=== PATIENT | female | born 1975 | race Caucasian/White ===

== ENCOUNTER 2020-12-27 11:23 | Emergency (ER) | payer OTHER, SELFPAY ==
--- NOTE | 2020-12-27 11:34 | ED.URI ---
HPI - URI/Sore Throat General Chief Complaint: Upper Respiratory Infection Stated Complaint: headache/sore throat Time Seen by Provider: 12/27/20 11:35 Source: patient and RN notes reviewed Mode of arrival: ambulatory Limitations: no limitations History of Present Illness HPI Narrative: 45-year-old female presents with concern for 6-day history of body aches, muscle cramps bilateral ear pain, change in her sense of smell, cough, sore throat. She denies shortness of breath. She has not been vaccinated for Covid. She denies known sick contacts. Reports she is taken several [id number] remedies without relief. MD elicited complaint: sore throat Related Data Home Medications Medication Instructions Recorded Confirmed albuterol sulfate 90 mcg/actuation See Rx Instructions .ROUTE .COMPLEX 10/13/19 12/27/20 breath activated powder inhaler budesonide-formoterol HFA 80 2 puff INHALATION .COMPLEX gm 10/13/19 12/27/20 mcg-4.5 mcg/actuation aerosol inhaler estradiol-norethindrone acet 1 tablet PO DAILY 12/27/20 12/27/20 [Mimvey] sertraline 100 mg PO DAILY 12/27/20 12/27/20 Allergies Allergy/AdvReac Type Severity Reaction Status Date / Time Penicillins Allergy Intermediate Fever Verified 12/27/20 11:45 Review of Systems Review of Systems: CONSTITUTIONAL: Reports malaise, fatigue. Denies chills, sweats, or fever. EYES: Denies visual changes, redness, or discharge. ENT: Reports rhinorrhea, congestion, otalgia and sore throat. CARDIOVASCULAR: Denies chest pain, palpitations, or edema. RESPIRATORY: Reports cough. Denies dyspnea. GASTROINTESTINAL: Denies abdominal pain, nausea, vomiting, diarrhea SKIN: Denies rash or itching. MUSCULOSKELETAL: Reports myalgia. NEUROLOGIC: Reports headache. All systems reviewed & are unremarkable except as noted in HPI and below PMFSH Past Medical History Medical History (Updated 12/27/20 @ 12:01 by Marylou Berger NP) Cervical radiculopathy Lumbar back pain Lumbar radiculopathy Neck pain Social History Social History Smoking status: Former smoker Smoking end date: 05/19/04 Alcohol intake: never Gender identity (if verbalized by the patient): Female Comments At time of signature, agree with nursing past medical, surgical, social and family history. There is no relevant family history pertinent to the presenting complaint Exam Narrative: GENERAL: Well-appearing, well-nourished, and in no acute distress. HEAD: Normocephalic EYES: PERRLA, conjunctivae clear ENT: Nares clear, clear discharge. Mucous membranes moist. TM pearly marquez with dull light reflex bilaterally; no tragal tenderness. Oropharynx not erythematous without lesions. Tonsils not enlarged and without exudate, no drooling, no hoarseness, no trismus, uvula midline. NECK: Supple. No lymphadenopathy CHEST: Clear to auscultation, breath sounds equal. No wheezing, rhonchi, rales, or stridor. No respiratory distress, speaks in full sentences. HEART: Regular rate and rhythm. No murmur heard. SKIN: Warm, dry, no rash. NEURO: Alert and oriented x3. PSYCH: Normal mood and affect Course Course Emergency Course: Patient is aware of diagnosis, understands and agrees to treatment plan. Anticipatory guidance given. Patient agrees to follow-up as directed and is aware of reasons to seek care at the emergency department. Portions of this record may have been created with voice recognition software Vital Signs Vital signs: Reviewed. Patient has been instructed to follow up with her primary care provider within the next week regarding her elevated blood pressure today. MDM - URI/Sore Throat MDM Narrative Medical decision making narrative: Differential diagnosis considered: Tavera virus, strep pharyngitis, allergic rhinitis, upper respiratory tract infection, sinusitis, rhinosinusitis, nasopharyngitis. viral pharyngitis, otitis media, otitis externa, pneumonia, bronchitis
[2020-12-27 11:35] VITALS: BP 143/98; PULSE 104; RESP 16; TEMP 36.9; O2SAT 97
== END 2020-12-27 12:15 | disposition home or self-care (01) ==
PROVIDERS: Emergency Provider Nurse Practitioner; PCP Emergency Medicine
DX: U07.1 COVID-19 (principal); Z87.891 Personal history of nicotine dependence
CPT/HCPCS: 87081; 87426; 87880; 99213; C9803; G0463

== ENCOUNTER 2021-08-22 10:28 | Outpatient (CLI) | payer OTHER, SELFPAY ==
--- NOTE | ~2021-08-22 | MMUS_ITS ---
EXAMINATION: MM diagnostic carrillo BI w jannie, US breast LT complete HISTORY: Left breast pain and palpable lump TECHNIQUE: Additional 3-D tomosynthesis images of the breasts were performed and synthetic 2-D images were generated. CAD analysis was submitted and interpreted. High resolution complete left breast ult rasound was performed. COMPARISON: Comparison to multiple prior studies sequentially, with oldest reviewed study dated 03/19. BREAST PARENCHYMAL COMPOSITION: The breasts are heterogenously dense, which may obscure small masses. FINDINGS: MAMMOGRAPHIC FINDINGS: There are no suspicious masses, calcifications or architectural distortion in either breast to sugges t malignancy. ULTRASOUND: Complete US of all 4 quadrants of the breasts and retroareolar region was reviewed. At 1:00, 2 cm fro m the nipple there is a 6 mm cyst. At 5:30, 5 cm from the nipple there are 2 cysts measuring 4 mm. In the left axilla there is a normal-appearing lymph node measuring 1.5 cm with fatty hilum. No suspici ous masses to suggest malignancy. IMPRESSION: 1. No evidence for malignancy in either breast. 2. Routine yearly screening mammogram and regular clinical breast examination are recommended. BI-RADS Category 2: Benign finding(s). Reviewed, dictated and finalized at location A. IMPRESSION: 1. No evidence for malignancy in either breast. 2. Routine yearly screening mammogram and regular clinical breast examination a re recommended. BI-RADS Category 2: Benign finding(s).
== END 2021-08-22 10:29 | disposition home or self-care (01) ==
LOC: ANHIMG 10:30
PROVIDERS: PCP Emergency Medicine; Visit Provider Emergency Medicine
DX: N64.4 Mastodynia (principal)
CPT/HCPCS: 76641; 77062; 77066; G0279

== ENCOUNTER 2021-12-24 08:41 | Emergency (ER) | payer OTHER, SELFPAY ==
[2021-12-24 08:50] VITALS: BP 140/92; PULSE 86; RESP 18; TEMP 36.6; O2SAT 100
--- NOTE | 2021-12-24 08:58 | ED.FEMALEGU ---
HPI - Female Genitourinary General Chief complaint: Urogenital-Female Stated complaint: UTI Time Seen by Provider: 12/24/21 09:09 Source: patient, RN notes reviewed and old records reviewed Mode of arrival: ambulatory Limitations: no limitations History of Present Illness HPI Narrative: 46-year-old female presents to the [facility] with complaints of I think I have a UTI. Symptoms for probably 5 to 7 days Patient reports some burning with urination. Has a history of chronic pain's, denies any new back pain. Denies abdominal pain. No CVA tenderness. Denies fevers. Has tried Azo yesterday with some relief. Sexual activity: Yes Related Data Home Medications Medication Instructions Recorded Confirmed estradiol-norethindrone acet 1 1 tablet PO DAILY 12/27/20 12/24/21 mg-0.5 mg tablet (Mimvey) Allergies Allergy/AdvReac Type Severity Reaction Status Date / Time Penicillins Allergy Intermediate Fever Verified 12/24/21 08:50 Review of Systems Review of Systems: All systems reviewed & are unremarkable except as noted in HPI and below Constitutional: Constitutional: Reports no additional constitutional complaints, Denies chills and Denies fatigue Eyes: Eyes: Reports no additional eye complaints ENT: Reports system reviewed and no additional complaints, except as documented Cardiovascular: Cardiovascular: Reports no additional cardiovascular complaints Respiratory: Respiratory: Reports no additional respiratory complaints Gastrointestinal: Gastrointestinal: Reports no additional gastrointestinal complaints, Denies abdominal pain, Denies diarrhea, Denies nausea and Denies vomiting Genitourinary: Genitourinary: Reports as per HPI (Frequency, urgency and burning), Reports dysuria, Denies flank pain and Denies vaginal discharge Musculoskeletal: Musculoskeletal: Reports no additional musculoskeletal complaints and Denies back pain Integumentary/Breasts: Skin/Breast: Reports system reviewed and no additional complaints, except as docu Neurologic: Reports system reviewed and no additional complaints, except as documented Psychiatric: Psychiatric: Reports no additional psychiatric complaints Endocrine: Endocrine: Denies fatigue Allergic/Immunologic: Allergic/Immunologic: Reports no additional allergic/immunologic complaints PMFSH Past Medical History Medical History (Updated 12/24/21 @ 18:45 by Marylou Danielle APRN) Cervical radiculopathy Lumbar back pain Lumbar radiculopathy Neck pain Social History Social History Smoking status: Former smoker Smoking end date: 05/19/04 Alcohol intake: never Gender identity (if verbalized by the patient): Female Comments At the time of my signature, I reviewed and agree with the nursing past medical, surgical, social, and family history. There is no relevant family history pertinent to the patient complaint. Exam Const: General: healthy appearing, no acute distress and alert Nutritional Appearance: well nourished and obese Orientation/consciousness: patient oriented x3 Limitations: no limitations HENMT: Head: normal to inspection General nose exam: Normal external nose present Eyes: Conjunctivae: conjunctivae normal Pupils: Equal, round and reactive pupils present Neck: Neck: normal visual inspection, no lymphadenopathy and no meningeal signs Chest: Chest palpation & inspection: normal inspection of the chest and abnormal inspection of the chest Resp: Effort & Inspection: normal respiratory effort Auscultation: clear to auscultation bilaterally Cardio: Rate: regular rate Rhythm: regular rhythm GI: GI Palp: Yes Soft to palpation and No Tenderness to palpation present (GI) : General: Yes no CVA tenderness Back/Spine/Pelvis: Back: no CVA tenderness Skin: General skin exam: normal color Rashes: no rashes Wounds: no wounds Neuro: General: patient oriented x3, moves all extremities, no men
== END 2021-12-24 09:25 | disposition home or self-care (01) ==
PROVIDERS: Emergency Provider Nurse Practitioner; PCP Emergency Medicine
DX: N39.0 Urinary tract infection, site not specified (principal); M54.12 Radiculopathy, cervical region; M54.16 Radiculopathy, lumbar region; Z87.891 Personal history of nicotine dependence
CPT/HCPCS: 81003; 87077; 87086; 87186; 99213; G0463

== ENCOUNTER 2022-05-22 11:22 | Emergency (ER) | payer OTHER, SELFPAY ==
[2022-05-22 11:28] VITALS: BP 141/83; PULSE 95; RESP 16; TEMP 36.9; O2SAT 98
--- NOTE | 2022-05-22 11:49 | ED.FEMALEGU ---
HPI - Female Genitourinary General Chief complaint: Urogenital-Female Stated complaint: UTI Time Seen by Provider: 05/22/22 11:50 Source: patient Mode of arrival: ambulatory Limitations: no limitations History of Present Illness HPI Narrative: Kori is a 47-year-old female patient presenting to the clinic today with complaints of possible urinary tract infection. She reports that she is having some burning with urination and foul odor x6 days. She reports she is now having some low back pain and some lower abdominal pain as well. She denies any fever but has had some chills as well. Related Data Home Medications Medication Instructions Recorded Confirmed conj estrogen-medroxyprogesterone 1 tablet PO DAILY 01/15/22 05/22/22 0.3 mg-1.5 mg tablet (Prempro) Allergies Allergy/AdvReac Type Severity Reaction Status Date / Time Penicillins Allergy Intermediate Fever Verified 05/22/22 11:35 Review of Systems Review of Systems: Pertinent positives per HPI. Patient denies any fever, chills, rash, headache, visual changes, dizziness, cough, runny nose, sore throat, shortness of breath, chest pain, palpitations, nausea, vomiting, diarrhea, constipation. PMFSH Past Medical History Medical History (Updated 05/22/22 @ 11:53 by Dwight Hamilton APRN) Cervical radiculopathy Lumbar back pain Lumbar radiculopathy Neck pain Social History Social History Smoking status: Former smoker Smoking end date: 05/19/04 Alcohol intake: never Gender identity (if verbalized by the patient): Female Comments At the time of my signature, I reviewed and agree with the nursing past medical, surgical, social, and family history. There is no relevant family history pertinent to the patient complaint. Exam Narrative: General: Well-developed, well nourished, in no apparent distress. Head: Normocephalic, atraumatic. Cardio: Regular rate and rhythm, s1 and s2 normal, no murmur appreciated. Resp: Clear to auscultation bilaterally, no rhonchi, rales, wheezing or rubs. Abdomen: Soft, pliable, bowel sounds present in all quadrants,tender to palpation over the suprapubic area, no organomegly, no CVAT tenderness. Course Course Emergency Course: Portions of this record may have been created with voice recognition software. Level of Care: Express Care Visit Vital Signs Vital signs: Vital Signs Temperature 36.9 C 05/22/22 11:28 Pulse Rate 95 05/22/22 11:28 Respiratory Rate 16 05/22/22 11:28 Blood Pressure 141/83 H 05/22/22 11:28 Pulse Oximetry 98 05/22/22 11:28 Oxygen Delivery Room Air 05/22/22 11:28 Temperature 36.9 C 05/22/22 11:28 Pulse Rate 95 05/22/22 11:28 Respiratory Rate 16 05/22/22 11:28 Blood Pressure 141/83 H 05/22/22 11:28 Pulse Oximetry 98 05/22/22 11:28 Oxygen Delivery Room Air 05/22/22 11:28 Vital signs reviewed MDM - Female Genitourinary MDM Narrative Medical decision making narrative: at the time of visit patient is resting comfortably on exam table. Urinalysis was performed she has 3+ leukocytes and 1+ blood. I suspect she has urinary tract infection will place her on Bactrim DS and Pyridium . Supportive measures were discussed with the patient she voiced understanding discharge instructions agrees to treatment plan Differential Diagnosis Differential diagnosis: Likely urinary tract infection and cystitis Lab Data Labs: Urine Glucose Negative Reference Range: Negative Urine Bilirubin Negative Reference Range: Negative Urine Ketone Negative Reference Range: Negative Urine Specific [place] 1.010 Reference Range:1.001-1.035
== END 2022-05-22 12:03 | disposition home or self-care (01) ==
PROVIDERS: Emergency Provider Nurse Practitioner Family; PCP Emergency Medicine
DX: N39.0 Urinary tract infection, site not specified (principal)
CPT/HCPCS: 81003; 87077; 87086; 87186; 99213; G0463

== ENCOUNTER 2022-05-30 16:43 | Emergency (ER) | payer OTHER, SELFPAY ==
[2022-05-30 17:11] VITALS: BP 133/89; PULSE 102; RESP 16; TEMP 37.4; O2SAT 98
--- NOTE | 2022-05-30 17:37 | ED.SKABFB ---
HPI - Skin/Abscess/Foreign Bdy General Chief complaint: Skin/Abscess/Foreign Body Stated complaint: Rash On Body Time Seen by Provider: 05/30/22 17:35 Source: patient, RN notes reviewed and old records reviewed Mode of arrival: ambulatory Limitations: no limitations History of Present Illness HPI narrative: 47-year-old female presents to the [facility] with complaints of hives that started yesterday after she started taking valacyclovir Reports that Pred and the warmth started just after she started taking valacyclovir yesterday. Started taking valacyclovir for a genital herpes outbreak. Denies any chest pain or shortness of breath. No lip or tongue swelling Reports taking Benadryl last night. Onset (ago): day(s) (1) Related Data Home Medications Medication Instructions Recorded Confirmed conj estrogen-medroxyprogesterone 1 tablet PO DAILY 01/15/22 05/22/22 0.3 mg-1.5 mg tablet (Prempro) Allergies Allergy/AdvReac Type Severity Reaction Status Date / Time Penicillins Allergy Intermediate Fever Verified 05/22/22 11:35 valacyclovir Allergy Mild Hives Verified 05/30/22 17:41 Review of Systems Review of Systems: All systems reviewed & are unremarkable except as noted in HPI and below Constitutional: Constitutional: Reports no additional constitutional complaints Eyes: Eyes: Reports no additional eye complaints ENT: Reports system reviewed and no additional complaints, except as documented Cardiovascular: Cardiovascular: Reports no additional cardiovascular complaints, Denies chest pain and Denies dyspnea Respiratory: Respiratory: Reports no additional respiratory complaints, Denies chest congestion, Denies cough and Denies dyspnea Gastrointestinal: Gastrointestinal: Reports no additional gastrointestinal complaints, Denies abdominal pain, Denies nausea and Denies vomiting Musculoskeletal: Musculoskeletal: Reports no additional musculoskeletal complaints Integumentary/Breasts: Skin/Breast: Reports as per HPI and Reports rash Neurologic: Reports system reviewed and no additional complaints, except as documented Psychiatric: Psychiatric: Reports no additional psychiatric complaints Allergic/Immunologic: Allergic/Immunologic: Reports no additional allergic/immunologic complaints [facility] Past Medical History Medical History Cervical radiculopathy Lumbar back pain Lumbar radiculopathy Neck pain Social History Social History Smoking status: Former smoker Smoking end date: 05/19/04 Alcohol intake: never Gender identity (if verbalized by the patient): Female Comments At the time of my signature, I reviewed and agree with the nursing past medical, surgical, social, and family history. There is no relevant family history pertinent to the patient complaint. Exam Const: General: cooperative, healthy appearing, comfortable, no acute distress, well developed, alert and well nourished Nutritional Appearance: well nourished and obese Orientation/consciousness: patient oriented x3 Limitations: no limitations HENMT: Head: normal to inspection Ears: hearing grossly normal bilaterally and external ears normal Face/Nose/Sinus: Normal external nose present, Normal nares present, Normal nasal mucous membranes and turbinates present and normal facial exam Face and sinus: normal facial exam Mouth: Yes Normal oral and palatal mucosa present, Yes lip normal and Yes moist mucous membranes Throat: posterior oropharynx normal and uvula midline Eyes: General: appearance normal, both eyes and all related structures Alignment and Position: alignment normal Periorbital: periorbital findings normal Conjunctivae: conjunctivae normal Pupils: Equal, round and reactive pupils present EOM: EOMs intact bilaterally Neck: Neck: normal visual inspection, full ROM, no lymphadenopathy and no meningeal signs Chest: Chest
== END 2022-05-30 18:00 | disposition home or self-care (01) ==
PROVIDERS: Emergency Provider Nurse Practitioner; PCP Emergency Medicine
DX: L50.0 Allergic urticaria (principal); T37.5X5A Adverse effect of antiviral drugs, initial encounter; M54.12 Radiculopathy, cervical region; M54.16 Radiculopathy, lumbar region; Z87.891 Personal history of nicotine dependence
CPT/HCPCS: 99213; G0463

== ENCOUNTER 2022-06-01 17:58 | Emergency (ER) | payer OTHER, SELFPAY ==
[2022-06-01] VITALS (11 sets, daily range): BP systolic 119–151; BP diastolic 76–99; PULSE 89–106; RESP 16–20; TEMP 36.4–36.6; O2SAT 97–100
[2022-06-01] MEDS: diphenhydrAMINE HCl INJ 50 MG/ML VIAL 25 MG IV PUSH (18:53)
[2022-06-01] MEDS: methylPREDNISolone SOD SUCC 125 MG VIAL IV PUSH (18:53)
[2022-06-01] MEDS: FAMOTIDINE 20 MG/2 ML VIAL IV PUSH (18:53)
--- NOTE | 2022-06-01 19:31 | ED.ALLEREA ---
HPI - Allergic Reaction General Chief complaint: Allergic Reaction Stated complaint: Allergic Reaction Time Seen by Provider: 06/01/22 18:26 History of Present Illness HPI narrative: 47-year-old female presenting to the emergency department for evaluation for a worsening allergic reaction. Patient recently completed course of Bactrim for a urinary tract infection. This was completed on Friday. On Friday patient also was started on valacyclovir. patient began developing rash and was evaluated by her primary care physician. Patient was subsequently started on prednisone and informed to take Benadryl and Pepcid. Patient presents emerged department for continuing allergic reaction. Patient's primary complaint is an itching rash. Patient denies any difficulty breathing or swallowing. Patient denies any swelling of her tongue lips or throat. Patient does also state that her anxiety has been worsened since being on the prednisone but she has been taking extra Klonopin. Patient reports he has been on Bactrim previously without issue. Patient's valacyclovir that she was started on was stopped. Patient is still taking Flagyl at this time and she is unsure if she is ever had Flagyl previously Related Data Home Medications Medication Instructions Recorded Confirmed conj estrogen-medroxyprogesterone 1 tablet PO DAILY 01/15/22 05/22/22 0.3 mg-1.5 mg tablet (Prempro) Allergies Allergy/AdvReac Type Severity Reaction Status Date / Time Penicillins Allergy Intermediate Fever Verified 05/22/22 11:35 valacyclovir Allergy Mild Hives Verified 05/30/22 17:41 Review of Systems Review of Systems: CONSTITUTIONAL: Denies fever, chills, or sweats. EYES: Denies visual changes, redness, or discharge. ENT: Denies rhinorrhea, congestion, sore throat, or otalgia. CARDIOVASCULAR: Denies chest pain, palpitations, or edema. RESPIRATORY: Denies cough or dyspnea. GASTROINTESTINAL: Denies abdominal pain, nausea, vomiting, or diarrhea. GENITOURINARY: Denies dysuria or hematuria. SKIN: Denies rash or itching. MUSCULOSKELETAL: Denies back pain, joint pain, or myalgia. NEUROLOGIC: Denies headache, numbness, or weakness. [facility] Past Medical History Medical History (Updated 06/01/22 @ 19:41 by Rickie [place] MD) Cervical radiculopathy Lumbar back pain Lumbar radiculopathy Neck pain Social History Social History Smoking status: Former smoker Smoking end date: 05/19/04 Alcohol intake: never Gender identity (if verbalized by the patient): Female Exam Narrative: APPEARANCE: Well appearing, no pain, no distress, well-nourished. HEAD: normocephalic, atraumatic. EYES: PERRLA/EOMI, conjunctivae clear. NOSE: Normal no drainage EARS:TMS clear with good light reflex. THROAT: Pharynx clear, no exudate. NECK: Supple. No adenopathy, no masses. RESPIRATORY: Airway patent, respirations nonlabored. Clear to auscultation bilaterally, no rales, rhonchi, wheezing. CARDIOVASCULAR: Regular rate and rhythm without murmurs rubs or gallops. ABDOMINAL: Soft, nontender, nondistended, normal bowel sounds MUSCULOSKELETAL: Moves all extremities. Strength/ROM intact, No edema, No calf tenderness. NEURO: Alert. Cranial nerves II through XII intact. Good gait. Good coordination SKIN: Multiple urticarial hives on face chest abdomen and limbs. Some areas of excoriation where patient has been anxiously scratching at the hives. PSYCHIATRIC: Some anxiety Course Course Emergency Course: Patient is having an urticarial allergic reaction to a unknown medication. This could still be residual reaction to the Bactrim that was completed on Friday. This could also be a reaction to the valacyclovir that was stopped 24 hours ago. Since the Flagyl is a possible new medication she was also recommended to hold on this medication. Patient confirmed that she is taking her steroid taper as directed along with the Pe
== END 2022-06-01 20:11 | disposition home or self-care (01) ==
PROVIDERS: Emergency Provider Emergency Medicine; PCP Emergency Medicine
DX: L50.0 Allergic urticaria (principal); T50.905A Adverse effect of unspecified drugs, medicaments and biological substances, initial encounter; Z87.891 Personal history of nicotine dependence; Z87.440 Personal history of urinary (tract) infections
CPT/HCPCS: 96374; 96375; 99284; J1200; J2930

== ENCOUNTER 2023-03-27 15:15 | Outpatient (CLI) | payer OTHER, SELFPAY ==
--- NOTE | ~2023-03-27 | MM_ITS ---
EXAMINATION: MM screening carrillo BI w jannie HISTORY: Screening TECHNIQUE: Craniocaudal and mediolateral oblique 3-D tomosynthesis images were obtained and synthetic 2-D images were generated. CAD analysis was submitted and interpreted. COMPARISON: Comparison to multiple prior studies sequentially, with oldest reviewed study dated 09/2014. BREAST PARENCHYMAL COMPOSITION: Breast composed of scattered areas of fibroglandular density FINDINGS: The right breast is stable without evidence for malignancy. There are developing asymmetrie s in the medial aspect of the left breast on CC view. IMPRESSION: 1. Developing left breast asymmetries. 2. Additional mammographic views and possible breast ultrasound are recommended. BI-RADS Category 0: Incomplete: Needs additional imaging evaluation. Reviewed, dictated and finalized at location A. ING TECHNICIAN IMPRESSION: 1. Developing left breast asymmetries. 2. Additional mammographic views and possible breast ultrasound are recommended . BI-RADS Category 0: Incomplete: Needs additional imaging evaluation.
== END 2023-03-27 15:16 | disposition home or self-care (01) ==
PROVIDERS: PCP Emergency Medicine; Visit Provider Nurse Practitioner Obstetrics & Gynecology
DX: Z12.31 Encounter for screening mammogram for malignant neoplasm of breast (principal); R92.8 Other abnormal and inconclusive findings on diagnostic imaging of breast
CPT/HCPCS: 77063; 77067

== ENCOUNTER 2023-05-07 13:01 | Outpatient (CLI) | payer OTHER, SELFPAY ==
--- NOTE | ~2023-05-07 | MMUS_ITS ---
EXAMINATION: MM diagnostic carrillo LT w jannie, US breast LT limited HISTORY: Developing medial left breast asymmetries reported on 04/06/2023 screening mammogram TECHNIQUE: Additional 3-D tomosynthesis images of the left breast were performed and synthetic 2-D im ages were generated. CAD analysis was submitted and interpreted. High resolution upper inner and lowe r inner quadrant left breast ultrasound was performed. COMPARISON: 03/27/2023 bilateral screening mammogram 08/22/2021 diagnostic bilateral mammogram and complete left breast ultrasound FINDINGS: MAMMOGRAPHIC FINDINGS: No suspicious mass or architectural distortion, microcalcifications, skin thickening or retraction is detected. ULTRASOUND: No suspicious mass or shadowing or other significant sonographic abnormality is detected. IMPRESSION: 1. No evidence of malignancy 2. Routine mammographic screening is recommended. BI-RADS Category 1: Negative Reviewed, dictated and finalized at location A. SEOLOGIST IMPRESSION: 1. No evidence of malignancy 2. Routine mammographic screening is recommended. BI-RADS Category 1: Negative
== END 2023-05-07 13:02 | disposition home or self-care (01) ==
LOC: ANHIMG 13:02
PROVIDERS: PCP Emergency Medicine; Visit Provider Emergency Medicine
DX: N63.0 Unspecified lump in unspecified breast (principal)
CPT/HCPCS: 76642; 77061; 77065; G0279

== ENCOUNTER 2023-07-06 19:17 | Emergency (ER) | payer OTHER, SELFPAY ==
--- NOTE | 2023-07-06 19:20 | ED.URI ---
HPI - URI/Sore Throat General Chief Complaint: Urogenital-Female Stated Complaint: UTI/Sore Throat Time Seen by Provider: 07/06/23 19:48 Source: patient and RN notes reviewed Mode of arrival: ambulatory Limitations: no limitations History of Present Illness HPI Narrative: Patient presents with multiple complaints. She reports several day history of dysuria, frequency, urgency, hematuria. She reports she has taken Tylenol without relief. She reports she feels warm but did not have a fever. She reports history of urinary tract infections. She reports vaginal soreness. She denies abnormal vaginal discharge. She also reports she has been having sore throat and white coating on her tongue in her mouth for quite some time. She has been tested for strep that was negative. She has been using hydrogen peroxide which helps slightly with her symptoms. She uses inhalers daily MD elicited complaint: other (white tongue, dysuria) Related Data Home Medications Medication Instructions Recorded Confirmed conj estrogen-medroxyprogesterone 1 tablet PO DAILY 01/15/22 07/06/23 0.3 mg-1.5 mg tablet (Prempro) Allergies Allergy/AdvReac Type Severity Reaction Status Date / Time Penicillins Allergy Intermediate Fever Verified 07/06/23 19:18 valacyclovir Allergy Mild Hives Verified 07/06/23 19:18 Review of Systems Review of Systems: CONSTITUTIONAL: Denies malaise, chills, sweats, or fever. EYES: Denies visual changes, redness, or discharge. ENT: Reports rhinorrhea, congestion, sinus pain, otalgia. Reports sore throat, white coating on her tongue and in her mouth CARDIOVASCULAR: Denies chest pain, palpitations, or edema. RESPIRATORY: Reports cough. Denies dyspnea. GASTROINTESTINAL: Denies abdominal pain, nausea, vomiting, diarrhea : Reports dysuria, hematuria SKIN: Denies rash or itching. MUSCULOSKELETAL: Denies myalgia. NEUROLOGIC: Denies headache. All systems reviewed & are unremarkable except as noted in HPI and below PMFSH Past Medical History Medical History Cervical radiculopathy Lumbar back pain Lumbar radiculopathy Neck pain Stroke Family History Family History Father Skin cancer Heart disease Mother Diabetes mellitus Depression Sibling Depression Grandparent Breast cancer Social History Social History Smoking status: Former smoker Smoking end date: 05/19/04 Alcohol intake: never Current Housing: Decline to Answer Concerned About Future Housing: Decline to Answer Difficulty Paying Gas/Electric Bills: Decline to Answer Difficulty Paying for Meds: Decline to Answer Currently Unemployed: Decline to Answer Education: Decline to Answer Difficulty w/ Childcare or Family Care: Decline to Answer Gender identity (if verbalized by the patient): Female Comments At time of signature, agree with nursing past medical, surgical, social and family history. There is no relevant family history pertinent to the presenting complaint Exam Narrative: GENERAL: Well-appearing, well-nourished, and in no acute distress. HEAD: Normocephalic EYES: PERRLA, conjunctivae clear ENT: Nares clear. Mucous membranes moist. TM pearly marquez with sharp light reflex bilaterally; no tragal tenderness. Oropharynx not erythematous without lesions. Tonsils not enlarged and without exudate, no drooling, no hoarseness, no trismus, uvula midline. White coating noted on the tongue NECK: Supple. No lymphadenopathy CHEST: Clear to auscultation, breath sounds equal. No wheezing, rhonchi, rales, or stridor. No respiratory distress, speaks in full sentences. HEART: Regular rate and rhythm. No murmur heard. SKIN: Warm, dry, no rash. : No CVA tenderness, no abdominal tenderness NEURO: Alert and oriented x3. PSYCH: Normal mood and affect Course
[2023-07-06 19:28] VITALS: BP 153/93; PULSE 118; RESP 16; TEMP 37; O2SAT 98
== END 2023-07-06 20:05 | disposition home or self-care (01) ==
PROVIDERS: Emergency Provider Nurse Practitioner; PCP Emergency Medicine
DX: R30.0 Dysuria (principal); B37.0 Candidal stomatitis; Z87.891 Personal history of nicotine dependence; Z86.73 Personal history of transient ischemic attack (TIA), and cerebral infarction without residual deficits
CPT/HCPCS: 81003; 87086; 99213; G0463

== ENCOUNTER 2025-03-21 16:41 | Emergency (ER) | payer MEDICAID, SELFPAY ==
[2025-03-21 16:52] VITALS: BP 136/71; PULSE 93; RESP 16; TEMP 37.1; O2SAT 100
--- NOTE | 2025-03-21 17:07 | ED_ITS ---
HPI - Female Genitourinary General Chief complaint: Urogenital-Female Stated complaint: UTI/Eyes Irritation Time Seen by Provider: 03/21/25 17:08 Source: patient and RN notes reviewed Mode of arrival: ambulatory Limitations: no limitations History of Present Illness HPI Narrative: 50-year-old female presents with multiple complaints. She reports her eyes feel heavy and dry, she has noticed some clear mucus in her eyes for 1 week. She wears contacts that are multi day where she reports she is cleaning the of contact solution. She denies pain or irritation. She says her eyes are not crusted shut in the morning when she wakes up. She denies vision changes. No separate complaints she reports 1 week history of dysuria, difficulty urinating, cloudy urine with foul odor and low back pain. She denies nausea, vomiting, fever, chills, sweats MD elicited complaint: UTI Related Data Allergies Allergy/AdvReac Type Severity Reaction Status Date / Time valacyclovir Allergy Mild Hives Verified 03/21/25 17:08 Penicillins AdvReac Mild Fever Verified 03/21/25 17:08 Review of Systems Review of Systems: CONSTITUTIONAL: Denies malaise, chills, sweats, or fever. EYES: PERRLA, conjunctivae clear bilaterally, no drainage noted. Sclera Very mildly injected bilaterally ENT: Nares clear. Mucous membranes moist. CARDIOVASCULAR: Denies chest pain, palpitations, or edema. RESPIRATORY: Denies cough or dyspnea. GASTROINTESTINAL: Denies abdominal pain, nausea, vomiting, diarrhea GENITOURINARY: Reports dysuria, frequency, urgency. Denies flank pain or hematuria. SKIN: Denies rash or itching. MUSCULOSKELETAL: Denies back pain or myalgia. All systems reviewed & are unremarkable except as noted in HPI and below [facility] Past Medical History Medical History STD exposure Dysuria Chronic wrist pain Arthralgia Visit for screening mammogram Paresthesia of skin Other chronic pain Numbness and tingling Mild single current episode of major depressive disorder Mild intermittent asthma without complication Mastitis Gait abnormality Chronic pain of right knee Acute cystitis without hematuria TMJ (temporomandibular joint disorder) Throat pain PND (post-nasal drip) Stroke Chronic sinusitis UTI (urinary tract infection) Conjunctivitis STD exposure Breast lump COVID-19 UTI (urinary tract infection) Flank pain Lumbar radiculopathy Lumbar back pain Cervical radiculopathy Neck pain Surgical History Surgical History S/P cholecystectomy Family History Family History Father Skin cancer Heart disease Mother Diabetes mellitus Depression Sibling Depression Grandparent Breast cancer Social History Social History Smoking packs per day: 0.5 Smoking cigarettes per day: 10.0 Smoking status: Current every day smoker Tobacco type: cigarettes Alcohol intake: never Substance use: never Substance use type: does not use Do You Feel Safe in your Home?: Yes Lack of Transportation: No Lack of Food: Never True Current Housing: Decline to Answer Concerned About Future Housing: Decline to Answer Difficulty Paying Gas/Electric Bills: Decline to Answer Difficulty Paying for Meds: Decline to Answer Currently Unemployed: Decline to Answer Education: Decline to Answer Difficulty w/ Childcare or Family Care: Decline to Answer Gender identity (if verbalized by the patient): Female Comments At time of signature, agree with nursing past medical, surgical, social and family history. There is no relevant family history pertinent to the presenting complaint Exam Narrative: GENERAL: Well-appearing, well-nourished, and in no acute distress. HEAD: Normocephalic. EYES: PERRLA, conjunctivae clear. NECK: Supple. No lymphadenopathy CHEST: Clear to auscultation. No respiratory distress. HEART: Regular rate and rhythm. ABDOMEN: Soft, nontender upon palpation, nondistended, no palpable or pulsatile masses, no guarding. No CVA tenderness SKIN: Warm, dry, no rash. NEURO: Alert and oriented x3. PSYCH: Normal mood and affect Course Course Emergency Course: Patient is aware of diagnosis, understands and agrees to treatment plan. Anticipatory guidance given. Patient agrees to follow-up as directed and is aware of reasons to seek care at the emergency department. Portions of this record may have been created with voice recognition software Level of Care: Express Care Visit Vital Signs Vital signs: Vital Signs Temperature 98.7 F 03/21/25 16:52 Pulse Rate 93 03/21/25 16:52 Respiratory Rate 16 03/21/25 16:52 Blood Pressure 136/71 03/21/25 16:52 Pulse Oximetry 100 03/21/25 16:52 Oxygen Delivery Room Air 03/21/25 16:52 Temperature 98.7 F 03/21/25 16:52 Pulse Rate 93 03/21/25 16:52 Respiratory Rate 16 03/21/25 16:52 Blood Pressure 136/71 03/21/25 16:52 Pulse Oximetry 100 03/21/25 16:52 Oxygen Delivery Room Air 03/21/25 16:52 Reviewed. MDM - Female Genitourinary MDM Narrative Medical decision making narrative: Exam findings and UA show no acute concerns or changes; patient is non-toxic appearing and is in no distress. Patient is appropriate for outpatient treatment and follow-up. Consideration of the following conditions may be warranted for the presenting problem, they are not final diagnoses: Bacterial conjunctivitis, allergic conjunctivitis, viral conjunctivitis, foreign body, blepharitis, chalazion, hordeolum, corneal abrasion, preseptal cellulitis, orbital cellulitis. No evidence of proptosis, ophthalmoplegia, vision loss, pain with eye movement. Exam findings show no acute concerns or changes; patient is non-toxic appearing and is in no distress. Patient is appropriate for outpatient treatment and follow-up. Differential Diagnosis Differential diagnosis: Likely urinary tract infection and cystitis Critical Care Time Critical Care Time Critical Care Time: No Discharge Plan Discharge Clinical Impression: Urinary tract infection, Allergic conjunctivitis Patient Disposition: Home Condition: Stable Instructions: Antibiotic Form, Urinary Tract Infection in Women (ED) Additional Instructions: We will send a urine culture to the lab; if the culture identifies an organism that the prescribed antibiotic will not treat, you will receive a phone call from an urgent care staff member and an appropriate antibiotic will be prescribed. -Your symptoms should begin to improve within a day of starting antibiotics. But you should finish all the antibiotic pills you get. Otherwise your infection might come back. -Also recommend: increase water intake. Tylenol/ibuprofen as needed for pain or fever -Follow-up with your primary care provider for urine recheck or seek ER visit if condition worsens with high fever, nausea, vomiting and severe back pain. Do not touch or rub your eye. Use a warm or cool washcloth on your eye for comfort Use eyedrops as directed You may take Tylenol or ibuprofen for pain Follow-up with PCP or human resources talent manager if condition is not improving in 2-3days. Go to the emergency room if you have pain behind your eye, pressure behind your eye, difficulty seeing, or other severe symptoms Patient Language: Faroese Prescriptions: New ketotifen fumarate [Zaditor] 0.025 % (0.035 %) drops 1 drp EACH EYE BID PRN (Reason: allergy symptoms) Qty: 5 0RF Rx Instructions: administer at least 8 hours apart sulfamethoxazole-trimethoprim 800-160 mg tablet 1 tablet PO Q12H 7 Days Qty: 14 0RF No Action phentermine 37.5 mg capsule 37.5 mg PO DAILY Qty: 30 0RF Rx Instructions: must administer 30 minutes before or 1-2 hours after breakfast topiramate 25 mg tablet See Rx Instructions .ROUTE .COMPLEX Qty: 180 2RF Dose Instruction: TAKE 1 TABLET BY MOUTH TWICE A DAY Rx Instructions: TAKE 1 TABLET BY MOUTH TWICE A DAY estradiol [Estrace] 0.01 % (0.1 mg/gram) cream 1 g vaginal .COMPLEX Qty: 42.5 1RF Rx Instructions: 1 g vaginally daily for 2 weeks then 3 times per week thereafter; duloxetine 30 mg capsule,delayed release(DR/EC) See Rx Instructions .ROUTE .COMPLEX Qty: 90 2RF Dose Instruction: TAKE 1 CAPSULE BY MOUTH EVERY DAY ALONG WITH THE 60 MG CAPSULE FOR TOTAL DOSE OF 90 MG Rx Instructions: TAKE 1 CAPSULE BY MOUTH EVERY DAY ALONG WITH THE 60 MG CAPSULE FOR TOTAL DOSE OF 90 MG duloxetine 60 mg capsule,delayed release(DR/EC) See Rx Instructions .ROUTE .COMPLEX Qty: 90 2RF Dose Instruction: TAKE 1 CAPSULE BY MOUTH EVERY DAY ALONG WITH THE 30 MG CAPSULE FOR TOTAL DOSE OF 90 MG Rx Instructions: TAKE 1 CAPSULE BY MOUTH EVERY DAY ALONG WITH THE 30 MG CAPSULE FOR TOTAL DOSE OF 90 MG Prempro 0.3-1.5 mg tablet 1 tablet PO DAILY Qty: 28 2RF clonazepam [Klonopin] 0.5 mg tablet 0.5 mg PO DAILY Qty: 30 2RF Premarin 0.625 mg/gram cream See Rx Instructions .ROUTE .COMPLEX Qty: 30 0RF Dose Instruction: INSERT 0.5 GM EVERY DAY BY VAGINAL ROUTE FOR 90 DAYS Rx Instructions: INSERT 0.5 GM EVERY DAY BY VAGINAL ROUTE FOR 90 DAYS Follow-up/Referrals: Jono El MD [Primary Care Provider, Internal Medicine] Time of Disposition: 17:17
[2025-03-21 17:19] LABS: EDUAAPPEAR Cloudy; EDUABILI Negative (Negative); EDUABLOOD Negative (Negative); EDUACOLOR1 Yellow; EDUAGLUCOSE Negative (Negative); EDUAKETONE Negative (Negative); EDUALEUKO 2+ (Negative); EDUANITRATE Positive (Negative); EDUAPH 7.0; EDUAPROTEIN Negative (Negative); EDUASPGRAVITY 1.015; EDUAUROBILI 0.2
== END 2025-03-21 17:24 | disposition home or self-care (01) ==
PROVIDERS: Emergency Provider Nurse Practitioner; PCP Emergency Medicine
DX: N39.0 Urinary tract infection, site not specified (principal); H10.10 Acute atopic conjunctivitis, unspecified eye; F17.210 Nicotine dependence, cigarettes, uncomplicated
CPT/HCPCS: 81003; 87077; 87086; 87186; 99213; G0463